=== PATIENT | male | born 1940 | race Caucasian/White ===

== ENCOUNTER 2020-01-17 10:28 | Emergency (ER) | payer MEDICARE ==
[~2020-01-17] VITALS: Ht 177.8 cm; Wt 61.7 kg
--- NOTE | 2020-01-17 10:40 | NUR ---
BIB SELF WITH C/O LEFT EAR PAIN X1 WEEK, APPLIED EAR WAX DROPS, INEFFECTIVE. NO FEVER. NO C/O DIZZINESS. NO N/V. NO BALANCE PROBLEM. AWIATING FOR MD CURRY
--- NOTE | 2020-01-17 10:45 | NUR ---
SEEN AND EVALUATED BY MD CARTER
[2020-01-17] MEDS ORDERED: DOCUSATE SODIUM LIQ 100 MG/10 ML UDC ONE (10:54)
[2020-01-17 12:12] VITALS: BP 142/78
== END 2020-01-17 12:13 | disposition home or self-care (01) ==
LOC: ER 10:33
DX: H61.21 Impacted cerumen, right ear (principal); H72.92 Unspecified perforation of tympanic membrane, left ear